=== PATIENT | female | born 1935 | race Two or more races ===

== ENCOUNTER 2022-08-22 06:15 | Inpatient (IN) | payer MEDICARE, BC ==
[~2022-08-22] VITALS: Ht 152.4 cm; Wt 43.1 kg
[2022-08-22 07:15] LABS: BASOPHILS % (AUTO) 0.2 % (0.0-2.0); EOSINOPHILS % (AUTO) 0.2 % (0.0-6.0); HEMATOCRIT 35 % (33-45); HEMOGLOBIN 11.5 g/dL (11.5-14.8); LYMPHOCYTES # (AUTO) 0.7 K/uL (0.8-4.8); LYMPHOCYTES % (AUTO) 5.6 % (20.0-44.0); MEAN CORPUSCULAR HGB CONC 33 g/dl (31.0-36.0); MEAN CORPUSCULAR VOLUME 95 fL (82-100); MONOCYTES # (AUTO) 0.9 K/uL (0.1-1.30); MONOCYTES % (AUTO) 6.9 % (2.0-12.0); NEUTROPHILS # (AUTO) 11.4 K/uL (1.8-8.9); NEUTROPHILS % (AUTO) 87.1 % (43.0-81.0); PLATELET COUNT (AUTO) 236 K/uL (150-450); RED BLOOD CELL COUNT(AUTO) 3.73 MIL/uL (4.0-5.2); WHITE BLOOD COUNT (AUTO) 13.1 K/uL (4.3-11.0)
[2022-08-22 07:22] LABS: CALCIUM, SERUM 8.7 mg/dL (8.5-10.1); CREATININE 0.7 mg/dL (0.6-1.3); POTASSIUM 3.8 mmol/L (3.5-5.1)
[2022-08-22 07:29] LABS: ALBUMIN 2.8 g/dL (3.4-5.0); BILIRUBIN,DIRECT 0.1 mg/dL (0.0-0.2); BILIRUBIN,TOTAL 0.3 mg/dL (0.2-1.0); TOTAL PROTEIN, SERUM 6.3 g/dL (6.4-8.2)
--- NOTE | 2022-08-22 08:47 | NUR ---
MOVE SHEET SUBMITTED.
--- NOTE | 2022-08-22 08:58 | NUR ---
covid swab collected and sent to lab
--- NOTE | 2022-08-22 08:58 | NUR ---
teresa established. R FA 22G
[2022-08-22] MEDS ORDERED: ONDANSETRON HCL/PF 4 MG/2 ML VIAL ONE (09:15)
[2022-08-22] MEDS ORDERED: MORPHINE SULFATE INJ 2 MG/ML DISP.SYRIN ONE ×2 (09:16→10:10)
[2022-08-22] MEDS ORDERED: MORPHINE SULFATE INJ 2 MG/ML DISP.SYRIN IV ONE ×2 (09:30→10:00)
[2022-08-22] MEDS ORDERED: ONDANSETRON HCL/PF 4 MG/2 ML VIAL IV ONE (09:30)
--- NOTE | 2022-08-22 09:34 | NUR ---
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
[2022-08-22] MEDS ORDERED: UMEC62.5 IH (09:39)
[2022-08-22] MEDS ORDERED: DILT240C88 PO (09:39)
[2022-08-22] MEDS ORDERED: AMIO200T5 PO (09:39)
[2022-08-22] MEDS ORDERED: METO25TA3 PO (09:39)
[2022-08-22] MEDS ORDERED: CLOP75TA15 PO (09:39)
[2022-08-22] MEDS ORDERED: HYPR15DR4 EACHEYE (09:39)
[2022-08-22] MEDS ORDERED: MELA3TAB41 PO (09:39)
[2022-08-22] MEDS ORDERED: APIX2.5T PO (09:39)
[2022-08-22] MEDS ORDERED: LACT1CAP72 PO (09:39)
[2022-08-22] MEDS ORDERED: BUPR300T52 PO (09:39)
[2022-08-22] MEDS ORDERED: LIDO30AD10 TP (09:39)
[2022-08-22] MEDS ORDERED: PSYL0.525 PO (09:39)
[2022-08-22] MEDS ORDERED: DICL100G26 TP (09:39)
--- NOTE | 2022-08-22 10:24 | NUR ---
room [id number]
--- NOTE | 2022-08-22 10:49 | NUR ---
CALLED [facility] [phone] RAMIN PAGED AGAIN.
--- NOTE | 2022-08-22 10:51 | NUR ---
report given to ayo for contiuation of care
[2022-08-22] MEDS ORDERED: MAGNESIUM HYDROXIDE 30 ML UDC PO PRN (11:30)
[2022-08-22] MEDS ORDERED: MAG HYDROX/AL HYDROX/SIMETH 30 ML UDC PO PRN (11:30)
[2022-08-22] MEDS ORDERED: Z GUARD REMEDY 4 OZ OINT TP PRN (11:30)
[2022-08-22] MEDS: MORPHINE SULFATE INJ 2 MG/ML DISP.SYRIN IV PRN ×2 (15:03→20:43)
[2022-08-22] MEDS: ONDANSETRON HCL/PF 4 MG/2 ML VIAL IVP PRN ×2 (15:16→21:18)
[2022-08-22 15:30] VITALS: BP 146/71
[2022-08-22] MEDS: ACIDOPHILUS/BULGARICUS 1 EACH TAB.CHEW PO SCH ×2 (17:00→17:14)
[2022-08-22] MEDS: APIXABAN 2.5 MG TABLET PO SCH ×2 (17:00→17:21)
[2022-08-22] MEDS: CLOPIDOGREL BISULFATE 75 MG TABLET PO SCH ×2 (17:15→18:00)
--- NOTE | 2022-08-22 17:15 | NUR ---
EDIE MS MEDICATION NON-ADMIN NOTE: MEDICATION NOT ADMINISTERED BECAUSE PT WAS VOMITING AND UNABLE TO SWALLOW PILLS. Addendum: 08/22/22 at 1824 by CHARANJIT MCDANIEL RN EDIE MS MEDICATION NON-ADMIN NOTE: 1700: THE FOLLOWING MEDICATION(S) WERE NOT ADMINISTERED BECAUSE PT WAS VOMITING AND UNABLE TO SWALLOW PILLS: CLOPIDOGREL 75 MG, ELIQUIS2.5 MG, METOPROLOL 50 MG, & LACTOBACILLUS DIETARY SUPPLEMENT.
[2022-08-22] MEDS: METOPROLOL SUCCINATE 25 MG TAB.SR.24H PO SCH ×2 (17:17→18:00)
[2022-08-22] MEDS: PSYLLIUM SEED 1 PKT PACKET PO SCH (17:50)
[2022-08-22] MEDS ORDERED: Medication Not On Formulary EA (Melatonin 3 MG) PO SCH (18:00)
--- NOTE | 2022-08-22 18:30 | NUR ---
RN MS CLOSING NOTE: PT IN BED, FAMILY MEMBER AND CAREGIVER VISITING AT BEDSIDE, PT COMPLAINED OF NAUSEA AND VOMITING FREQUENTLY THROUGHOUT AFTERNOON, CAREGIVER STATES PT GETS NAUSEOUS AND VOMITS QUITE FREQUENTLY AND HAS A SENSITIVE STOMACH. ZOFRAN WAS ADMINISTERED FOR NAUSEA- SEE EMAR. SEE NOTES-SCHEDULED EVENING MEDS NOT ADMINISTERED D/T VOMITING. VITAL SIGNS AT 1530 FOLLOWS:B/P: 146/71, P: 93, R: 24, TEMP: 97.9, SPO2: 97 %. BED IN LOW POSITION, CALL LIGHT IN REACH, PT IS RESTING WITH EYES CLOSED AT THIS TIME, NO S/S OF DISTRESS. WILL ENDORSE CARE TO NEXT SHIFT.
--- NOTE | 2022-08-22 18:38 | NUR ---
RN NOTE PATIENT CAME WITH A LEFT SHAFER WOUND COVERED WITH STERI STRIP AND BAND AID. ATTEMPTED TO REMOVE THE DRESSING BUT PATIENT WAS IN PAIN AND REFUSED TO REMOVE THE DRESSING.
[2022-08-22] MEDS: POLYVINYL ALCOHOL 15 ML BOTTLE EACHEYE SCH (19:49)
--- NOTE | 2022-08-22 19:56 | NUR ---
MS RN OPENING NOTE PATIENT AWAKE IN BED WITH CAREGIVER AT BEDSIDE, PT ALERT/ORIENTED X 2-3, PT C/O 9/10 PAIN AT THIS TIME, WILL GIVE PAIN MEDICATION AFTER VITAL SIGNS ARE TAKEN. PATIENT STABLE ON RA, NO S/S OF DISTRESS OR SOB NOTED, BREATHING EVEN AND UNLABORED. IV ACCESS ON RFA #22G INTACT AND SALINE LOCKED. SAFETY MEASURES IN PLACE: CALL LIGHT WITHIN REACH, SIDE RAILS UP X 2, BED LOCKED IN LOWEST POSITION, HOB ELEVATED, BED ALARM ON. WILL CONTINUE TO MONITOR PATIENT
[2022-08-22 20:00] VITALS: BP 143/74
[2022-08-23] MEDS: MORPHINE SULFATE INJ 2 MG/ML DISP.SYRIN IV PRN ×2 (06:04→16:25)
--- NOTE | 2022-08-23 06:09 | NUR ---
MS RN NOTE PATIENT C/O 8/10 RIGHT HIP PAIN, MORPHINE 1 MG IV GIVEN ORDERED. WASTED MED WITH EDIE EATON. WILL CONTINUE TO MONITOR PATIENT
[2022-08-23 07:13] LABS: BASOPHILS % (AUTO) 0.2 % (0.0-2.0); EOSINOPHILS % (AUTO) 0.1 % (0.0-6.0); HEMATOCRIT 30 % (33-45); LYMPHOCYTES # (AUTO) 0.7 K/uL (0.8-4.8); LYMPHOCYTES % (AUTO) 5.2 % (20.0-44.0); MEAN CORPUSCULAR HGB CONC 33 g/dl (31.0-36.0); MEAN CORPUSCULAR VOLUME 94 fL (82-100); MONOCYTES # (AUTO) 1.6 K/uL (0.1-1.30); MONOCYTES % (AUTO) 12.2 % (2.0-12.0); NEUTROPHILS # (AUTO) 10.5 K/uL (1.8-8.9); NEUTROPHILS % (AUTO) 82.3 % (43.0-81.0); PLATELET COUNT (AUTO) 202 K/uL (150-450); RED BLOOD CELL COUNT(AUTO) 3.21 MIL/uL (4.0-5.2); WHITE BLOOD COUNT (AUTO) 12.8 K/uL (4.3-11.0)
[2022-08-23 07:26] LABS: ALBUMIN 2.6 g/dL (3.4-5.0); BILIRUBIN,TOTAL 0.7 mg/dL (0.2-1.0); CALCIUM, SERUM 8.3 mg/dL (8.5-10.1); CREATININE 0.6 mg/dL (0.6-1.3)
--- NOTE | 2022-08-23 07:43 | NUR ---
MS RN CLOSING NOTE PATIENT AWAKE IN BED WITH CAREGIVER AT BEDSIDE, PT ALERT/ORIENTED X 3. PATIENT STABLE ON RA, NO S/S OF DISTRESS OR SOB NOTED, BREATHING EVEN AND UNLABORED. IV ACCESS ON RFA #22G INTACT AND SALINE LOCKED. MEDICATIONS GIVEN ORDERED, PT NEEDS MET THROUGHOUT SHIFT, NO SIGNIFICANT CHANGES. PUREWICK IN PLACE AND CHANGED THIS AM, DRAINING YELLOW URINE. SAFETY MEASURES IN PLACE: CALL LIGHT WITHIN REACH, SIDE RAILS UP X 2, BED LOCKED IN LOWEST POSITION, HOB ELEVATED, BED ALARM ON. ENDORSED TO DAYSHIFT RN FOR CONTINUITY OF CARE
[2022-08-23 08:34] VITALS: BP 138/69
--- NOTE | 2022-08-23 09:11 | NUR ---
MS RN OPENING NOTE PATIENT AWAKE IN BED WITH CAREGIVER AT BEDSIDE, PT ALERT/ORIENTED X 3. PATIENT STABLE ON RA, NO S/S OF DISTRESS OR SOB NOTED, BREATHING EVEN AND UNLABORED. IV ACCESS ON RFA #22G INTACT AND SALINE LOCKED.PUREWICK IN PLACE AND CHANGED THIS AM, DRAINING YELLOW URINE. SAFETY MEASURES IN PLACE: CALL LIGHT WITHIN REACH, SIDE RAILS UP X 2, BED LOCKED IN LOWEST POSITION, HOB ELEVATED, BED ALARM ON.
[2022-08-23] MEDS: LIDOCAINE 5% (PATCH) 1 EA PATCH TP SCH (10:04)
[2022-08-23] MEDS: PSYLLIUM SEED 1 PKT PACKET PO SCH ×2 (10:05→18:12)
[2022-08-23] MEDS: BUPROPION XL 150 MG TAB.ER.24 PO SCH (10:06)
[2022-08-23] MEDS: APIXABAN 2.5 MG TABLET PO SCH ×2 (10:07→17:00)
[2022-08-23] MEDS: DILTIAZEM HCL CD 240 MG PO SCH (10:08)
[2022-08-23] MEDS: AMIODARONE HCL 200 MG TABLET PO SCH (10:09)
[2022-08-23] MEDS: ACIDOPHILUS/BULGARICUS 1 EACH TAB.CHEW PO SCH ×2 (10:10→18:15)
[2022-08-23] MEDS: POLYVINYL ALCOHOL 15 ML BOTTLE EACHEYE SCH ×3 (10:12→17:00)
[2022-08-23] MEDS: ENSURE CLEAR 237 ML LIQUID (MIX BERRY) PO SCH ×2 (13:00→18:31)
[2022-08-23] MEDS: ONDANSETRON HCL/PF 4 MG/2 ML VIAL IVP PRN (14:42)
[2022-08-23] MEDS: CLOPIDOGREL BISULFATE 75 MG TABLET PO SCH (18:00)
--- NOTE | 2022-08-23 18:00 | NUR ---
ms rn patient iv heplock inserted at left upper arm w/ good venous return.
[2022-08-23] MEDS: METOPROLOL SUCCINATE 25 MG TAB.SR.24H PO SCH (18:14)
--- NOTE | 2022-08-23 19:00 | NUR ---
ms rn on bed,no distress noted, all needs attended.
--- NOTE | 2022-08-23 19:40 | NUR ---
MS RN Opening Note Received patient in bed; awake, alert and oriented x 2. On room air; tolerating well. Not in any form of respiratory or cardiac distress. Denies any pain or discomfort. With IV access on left upper arm 24g; patent, intact and saline locked. Able to make needs known. With caregiver at bedside. Fall and safety precautions implemented: call light and table within reach, side rails up x 3, bed in lowest locked position. Will continue to monitor throughout shift.
[2022-08-23 20:00] VITALS: BP 120/52
[2022-08-23] MEDS: IPRATROPIUM NEB FS 0.5 MG/2.5 ML AMPUL.NEB NEB SCH (20:29)
[2022-08-24] MEDS: IPRATROPIUM NEB FS 0.5 MG/2.5 ML AMPUL.NEB NEB SCH ×4 (01:36→20:42)
[2022-08-24] MEDS: MORPHINE SULFATE INJ 2 MG/ML DISP.SYRIN IV PRN ×2 (02:17→10:19)
--- NOTE | 2022-08-24 02:17 | NUR ---
RN Note Patient c/o right hip pain with pain scale 10/10. PRN Morphine sulfate inj 1 mg 0.5 ml given IV push as ordered. Kept comfortable in bed. Will continue to monitor and reassess patient.
--- NOTE | 2022-08-24 06:50 | NUR ---
MS RN Closing Note Patient in bed; awake, a/o x 2. Stable on room air. In no acute distress. Denies pain or discomfort. With IV access left upper arm 24g; patent, intact and saline locked. All needs attended. All due med given as indicated. Still with caregiver at bedside. Fall and safety precautions maintained: call light and table within reach, side rails up x 3, bed in lowest locked position. Endorsed to morning shift for continuity of care.
--- NOTE | 2022-08-24 07:30 | NUR ---
MS RN OPENING NOTES Received patient in bed; asleep, a/o x 2. Stable on room air. In no acute distress. Denies pain or discomfort. With IV access left upper arm 24g; patent, intact and saline locked. All needs attended. Will administer all due meds as \ordered. caregiver at bedside. Fall and safety precautions maintained: call light and table within reach, side rails up x 3, bed in lowest locked position. Will conitnune to monitor.
[2022-08-24] MEDS: ENSURE CLEAR 237 ML LIQUID (MIX BERRY) PO SCH ×3 (08:17→17:20)
[2022-08-24] MEDS: POLYVINYL ALCOHOL 15 ML BOTTLE EACHEYE SCH ×3 (08:19→17:18)
[2022-08-24] MEDS: BUPROPION XL 150 MG TAB.ER.24 PO SCH (08:20)
[2022-08-24] MEDS: PSYLLIUM SEED 1 PKT PACKET PO SCH ×2 (08:20→17:19)
[2022-08-24] MEDS: ACIDOPHILUS/BULGARICUS 1 EACH TAB.CHEW PO SCH ×2 (08:20→17:19)
[2022-08-24] MEDS: DILTIAZEM HCL CD 240 MG PO SCH (08:27)
[2022-08-24] MEDS: AMIODARONE HCL 200 MG TABLET PO SCH (08:28)
[2022-08-24] MEDS: APIXABAN 2.5 MG TABLET PO SCH ×2 (08:29→17:19)
[2022-08-24] MEDS: LIDOCAINE 5% (PATCH) 1 EA PATCH TP SCH (08:31)
[2022-08-24 08:37] VITALS: BP 107/58
--- NOTE | 2022-08-24 10:00 | NUR ---
WOUND CARE CONSULT: PT PRESENTS EXTREMELY THIN AND BONY WITH CRUSTED WOUND TO LEFT LOWER LEG AND VERY BONY SACRAL AREA, CALLUSED/FRAGILE SKIN TO HEELS, ALL PRESENT ON ADMISSION. DR GOMEZ CALLED FOR DPM CONSULT. DISCUSSED SKIN PROTECTION WITH NURSING STAFF AND CAREGIVER AT BEDSIDE. PT USING PURE WICK SYSTEM FOR URINARY INCONTINENCE. MD IN AGREEMENT WITH PLAN OF CARE. Addendum: 08/24/22 at 1002 by MP ARTHUR Amended: Links added. Addendum: 08/24/22 at 1004 by MP CAVAZOSU PER PT CAREGIVER AT BEDSIDE, PT SUSTAINED SKIN TEAR TO LEFT LOWER LEG 2 WEEKS AGO AT HOME.
[2022-08-24] MEDS: VANCOMYCIN 0.75 GM in IV D5W 250 ML IV SCH ×2 (10:54→22:06)
[2022-08-24] MEDS: ONDANSETRON HCL/PF 4 MG/2 ML VIAL IVP PRN (15:07)
[2022-08-24 16:18] VITALS: BP 112/52
[2022-08-24] MEDS: CLOPIDOGREL BISULFATE 75 MG TABLET PO SCH (17:20)
[2022-08-24] MEDS: METOPROLOL SUCCINATE 25 MG TAB.SR.24H PO SCH (17:20)
--- NOTE | 2022-08-24 17:21 | NUR ---
RN NOTES NON ADMINISTERED PLAVIX AND METOPROLOL FOR PT. ACCORDING TO CAREGIVER, THEY INFORMED THE NURSES FROM PREVIOUS SHIFTS THE NEW MED LIST, BUT NOT UPDATED YET IN THE MAR. WILL ENDORSE TO NEXT SHIFT AND UPDATE MD.
--- NOTE | 2022-08-24 19:35 | NUR ---
MS RN Opening Note Received patient in bed; awake, alert and oriented x 2. On room air; well tolerated. Not in any form of respiratory or cardiac distress. Denies any pain or discomfort. With IV access on left upper arm 24g; patent, intact and saline locked. Able to make needs known. With caregiver at bedside. Fall and safety precautions implemented: call light and table within reach, side rails up x 3, bed in lowest locked position. Will continue to monitor throughout shift.
--- NOTE | 2022-08-24 19:36 | NUR ---
MS RN CLOSING NOTES patient in bed, asleep, a/o x 2. Stable on room air. In no acute distress. Denies pain or discomfort. With IV access left upper arm 24g; patent, intact and saline locked. All needs attended. all meds given as ordered. caregiver at bedside. urine output of 100 cc. Fall and safety precautions maintained: call light and table within reach, side rails up x 3, bed in lowest locked position. Will endorse to lithographic photographer.
[2022-08-24 20:00] VITALS: BP 110/53
[2022-08-25] MEDS: MORPHINE SULFATE INJ 2 MG/ML DISP.SYRIN IV PRN (01:25)
--- NOTE | 2022-08-25 01:25 | NUR ---
RN Note Patient's complained of right hip pain 10/10 pain scale. Morphine inj 2 mg 1 ml pulled out from omnicell. With PRN Morphine inj 1 mg 0.5 ml to be given IV as ordered for pain. RN Feliciano Rendon witnessed the wasting of the 0.5 ml morphine; prepared to give morphine 0.5 ml to patient but IV access left upper arm 24g got infiltrated. IV reinsertion done but unsuccessful. Patient refused to have another IV reinsertion. Patient requested to give it IM. call specialist Moiz Rosado made aware @ 0159am; got order to give it IM @ 0315 and will carry out.
[2022-08-25] MEDS: IPRATROPIUM NEB FS 0.5 MG/2.5 ML AMPUL.NEB NEB SCH ×4 (01:30→19:30)
[2022-08-25] MEDS: ACETAMINOPHEN 325 MG TABLET PO PRN ×2 (02:53→18:57)
[2022-08-25] MEDS: MORPHINE SULFATE INJ 2 MG/ML DISP.SYRIN IM/IV PRN ×2 (03:49→16:55)
--- NOTE | 2022-08-25 03:49 | NUR ---
RN Note Patient complained right hip pain 10/10 pain scale. PRN Morphine inj 1 mg 0.5 ml given IM as ordered per patient's request. Kept comfortable in bed. Will continue to monitor.
--- NOTE | 2022-08-25 06:35 | NUR ---
MS RN Closing Note Received patient in bed; a/o x 2. Stable on room air. In no acute distress. No c/o pain or discomfort. No IV access. All needs attended. All due meds given as ordered. Fall and safety precautions maintained: call light and table within reach, side rails up x 3, bed in lowest locked position. Endorsed to morning shift for continuity of care.
[2022-08-25 06:38] LABS: CALCIUM, SERUM 7.9 mg/dL (8.5-10.1); CREATININE 0.8 mg/dL (0.6-1.3); POTASSIUM 3.5 mmol/L (3.5-5.1)
--- NOTE | 2022-08-25 07:30 | NUR ---
MS RN OPENING NOTES Received patient in bed; asleep, a/o x 2. Stable on room air. In no acute distress. Denies pain or discomfort. No IV access. All needs attended. Will administer all due meds as ordered. caregiver at bedside. Fall and safety precautions maintained: call light and table within reach, side rails up x 3, bed in lowest locked position. Will continue to monitor.
[2022-08-25 08:00] VITALS: BP 107/52
[2022-08-25] MEDS: ENSURE CLEAR 237 ML LIQUID (MIX BERRY) PO SCH ×3 (08:29→16:46)
[2022-08-25] MEDS: POLYVINYL ALCOHOL 15 ML BOTTLE EACHEYE SCH ×3 (08:30→16:47)
[2022-08-25] MEDS: ACIDOPHILUS/BULGARICUS 1 EACH TAB.CHEW PO SCH ×2 (08:43→16:46)
[2022-08-25] MEDS: BUPROPION XL 150 MG TAB.ER.24 PO SCH (08:43)
[2022-08-25] MEDS: AMIODARONE HCL 200 MG TABLET PO SCH (08:52)
[2022-08-25] MEDS: APIXABAN 2.5 MG TABLET PO SCH ×2 (08:52→16:47)
[2022-08-25] MEDS: DILTIAZEM HCL CD 240 MG PO SCH (08:53)
[2022-08-25] MEDS: PSYLLIUM SEED 1 PKT PACKET PO SCH ×2 (08:57→16:46)
[2022-08-25] MEDS: LIDOCAINE 5% (PATCH) 1 EA PATCH TP SCH (09:00)
[2022-08-25] MEDS ORDERED: POLYETHYLENE GLYCOL 3350 17 GM POWD.PACK PO ONE (10:00)
[2022-08-25] MEDS: VANCOMYCIN 0.75 GM in IV D5W 250 ML IV SCH (12:48)
--- NOTE | 2022-08-25 12:50 | NUR ---
RN NOTES LATE ADMINISTRATION OF VANCOMYCIN. PT REQUESTED TO HAVE IV ACCESS PLACED AT A LATER TIME.
[2022-08-25 16:00] VITALS: BP 104/55
--- NOTE | 2022-08-25 16:42 | NUR ---
RN NOTES REPORT GIVEN TO EDIE DHILLON AT THE [facility]. PT WILL BE PICKED UP BY TRANSPORTATION AROUND 1900. PT WILL BE AT RM 321.
--- NOTE | 2022-08-25 18:45 | NUR ---
MS RN CLOSING NOTES patient resting in bed; awake, a/o x 2. Stable on room air. In no acute distress. complains of pain, last med given was morphne at 1655. iv access on Left forearm #24g SL. All needs attended. all due meds given as ordered. caregiver and family at bedside. Fall and safety precautions maintained: call light and table within reach, side rails up x 3, bed in lowest locked position. waiting for transportation for pickup and transferred to [facility]. discharge papers ready. will endorse to next shift.
--- NOTE | 2022-08-25 19:49 | NUR ---
RN NOTE PATIENT WAS SUCCESSFULLY DISCHARGED. milking machine mechanic ARRIVED TO RAYON WINDER PATIENT. FAMILY AT BEDSIDE. IV LEFT INTACT D/T ABX THERAPY TO BE COMPLETED POST-D/C AT [facility]. ID BANDS REMOVED AND DISPOSED OF PER PROTOCOL. REPORT GIVEN TO milking machine mechanic AT BEDSIDE. PATIENT'S VS STABLE AND WNL. PATIENT SUCCESSFULLY DISCHARGED.
[2022-08-25] MEDS ORDERED: VANCOMYCIN 500 MG in IV D5W 100ml IV SCH (22:00)
== END 2022-08-25 20:00 | DRG 964 ==
LOC: ER 06:17 → MED 10:56
PROVIDERS: ADMIT Internal Medicine; ATTEND Internal Medicine
DX: S72.114A Nondisplaced fracture of greater trochanter of right femur, initial encounter for closed fracture (principal); S32.444A Nondisplaced fracture of posterior column [ilioischial] of right acetabulum, initial encounter for closed fracture; D68.59 Other primary thrombophilia; J98.11 Atelectasis; E87.1 Hypo-osmolality and hyponatremia; E44.1 Mild protein-calorie malnutrition; W01.0XXA Fall on same level from slipping, tripping and stumbling without subsequent striking against object, initial encounter; Y92.009 Unspecified place in unspecified non-institutional (private) residence as the place of occurrence of the external cause; Z85.3 Personal history of malignant neoplasm of breast; Z85.118 Personal history of other malignant neoplasm of bronchus and lung; Z88.2 Allergy status to sulfonamides; Z79.02 Long term (current) use of antithrombotics/antiplatelets; Z79.01 Long term (current) use of anticoagulants; Z79.899 Other long term (current) drug therapy; Z96.643 Presence of artificial hip joint, bilateral; Z99.3 Dependence on wheelchair; Z91.81 History of falling; S09.90XA Unspecified injury of head, initial encounter; I10 Essential (primary) hypertension; I48.91 Unspecified atrial fibrillation; D72.829 Elevated white blood cell count, unspecified; I25.10 Atherosclerotic heart disease of native coronary artery without angina pectoris; E88.09 Other disorders of plasma-protein metabolism, not elsewhere classified; K57.30 Diverticulosis of large intestine without perforation or abscess without bleeding; R26.9 Unspecified abnormalities of gait and mobility; L89.616 Pressure-induced deep tissue damage of right heel; S80.812A Abrasion, left lower leg, initial encounter
CPT/HCPCS: 36415; 70450-TC; 71045-TC; 73502; 80048-TC; 80053-TC; 80076-TC; 83605-TC; 83690-TC; 83735-TC; 84100-TC; 85025-TC; 85730-TC; 86850-TC; 87040-TC; 87081-TC; 94799-TC; 97110-TC; 97112-TC; 97530-TC; C9803; G0378; J2270; J2405; J3370; J7050; J7060